=== PATIENT | male | born 1965 | race African-American/Black ===

== ENCOUNTER 2022-04-02 12:01 | Emergency (ER) | payer MEDICAID, OTHER ==
[~2022-04-02] VITALS: Ht 185.4 cm; Wt 91.0 kg
[2022-04-02] MEDS ORDERED: HYDROCODONE/ACETAMINOPHEN 5/325MG TABLET PO ONE (14:00)
[2022-04-02] MEDS ORDERED: KETOROLAC 60MG/2ML VIAL IM ONE (14:00)
[2022-04-02] MEDS ORDERED: T3 PO (17:02)
[2022-04-02] MEDS ORDERED: CYCL10TA21 MT (17:02)
[2022-04-02 17:17] VITALS: BP 118/70
== END 2022-04-02 17:18 | disposition home or self-care (01) ==
LOC: ER 12:28
DX: S33.5XXA Sprain of ligaments of lumbar spine, initial encounter (principal); V49.49XA Driver injured in collision with other motor vehicles in traffic accident, initial encounter; Y93.89 Activity, other specified; Y92.488 Other paved roadways as the place of occurrence of the external cause
CPT/HCPCS: 72131; 99284; J1885